=== PATIENT | male | born 1930 | race Caucasian/White ===

== ENCOUNTER 2017-04-18 10:46 | Emergency (ER) | payer BC ==
[~2017-04-18] VITALS: Ht 175.3 cm; Wt 81.6 kg
[2017-04-18] MEDS ORDERED: CALCIUM CHLORIDE 10% 100 MG/ML SYR IVP ONE (10:47)
[2017-04-18] MEDS ORDERED: EPINEPHrine PFS 0.1 MG/ML SYR IVP ONE (10:47)
[2017-04-18] MEDS ORDERED: SODIUM BICARBONATE 8.4% PFS 50 MEQ/50 ML SYR IVP ONE (10:47)
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
--- NOTE | 2017-04-18 10:59 | NUR ---
X-Ray at bedside.
--- NOTE | 2017-04-18 11:26 | NUR ---
SERVICES TERMINATED AT THIS TIME BY DR. DEISY COLEY ED/
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
--- NOTE | 2017-04-18 12:14 | NUR ---
AT 1126 CODE WAS TERMINATED BY DR HUSAIN, FAMILY AT BEDSIDE AGREED WITH TERMINATION. GIVEN INFORMATION ABOUT MORTUARY, AWAITING CALL.
--- NOTE | 2017-04-18 12:15 | NUR ---
AT 1150 AM NOTIFIED BOTH [facility] AND [facility], [facility] RELEASED BODY AWAITING [facility] CALL.
--- NOTE | 2017-04-18 13:35 | NUR ---
BODY RELEASED BY OCCUPATIONAL THERAPIST ASSISTANT CALLED MORTUARY
--- NOTE | 2017-04-18 16:52 | NUR ---
REP FROM [facility] ARRIVED TO FUEL CELL TECHNICIAN , PATIENT IN ROOM 127 A. NO BELONGINGS ON PERSON.
== END 2017-04-18 11:26 | disposition expired ==
LOC: EDBD 10:46 → MED 10:46
DX: I46.9 Cardiac arrest, cause unspecified (principal); S00.01XA Abrasion of scalp, initial encounter; X58.XXXA Exposure to other specified factors, initial encounter; Y93.89 Activity, other specified; Y92.89 Other specified places as the place of occurrence of the external cause; Y99.8 Other external cause status
CPT/HCPCS: 71010; 92950; 99291; 99292; J0171; Q0092